=== PATIENT | female | born 1970 | race African-American/Black ===

== ENCOUNTER 2018-12-27 03:01 | Emergency (ER) | payer BC ==
[~2018-12-27] VITALS: Ht 149.9 cm; Wt 113.4 kg
[2018-12-27] MEDS ORDERED: PRILOSEC 20 MG20 MG PO (03:26)
[2018-12-27 03:48] LABS: ABSOLUTE NEUTROPHILS 2.5 thou/uL (1.4-8.2); BASOPHILS 0.8 % (0.0-2.0); EOSINOPHILS 2.4 % (0.0-3.0); HEMATOCRIT 38.9 % (37.0-47.0); HEMOGLOBIN 12.7 gm/dL (12.0-15.0); LYMPHOCYTES 37.5 % (24.0-44.0); MCHC 32.6 g/dL (28.0-37.0); MCV 82.8 fL (80.0-100.0); MONOCYTES 9.8 % (1.0-8.0); PLATELET COUNT 327 thou/uL (150-400); POLYS 49.5 % (36.0-66.0); RBC 4.69 mil/uL (4.20-5.00); RDW 13.8 % (10.5-14.5)
[2018-12-27 03:54] LABS: CALCIUM 8.9 mg/dL (8.5-10.1); CREATININE 0.9 mg/dL (0.6-1.0); POTASSIUM 3.8 mmol/L (3.5-5.1)
[2018-12-27 04:00] LABS: ALBUMIN 3.4 g/dL (3.4-5.0); TOTAL BILIRUBIN 1.6 mg/dL (<0.1-1.0); TOTAL PROTEIN 7.4 g/dL (6.4-8.2)
[2018-12-27 04:16] LABS: URINE BILIRUBIN NEGATIVE (Negative); URINE BLOOD NEGATIVE (Negative); URINE CLARITY CLEAR; URINE COLOR YELLOW; URINE GLUCOSE-RANDOM* NEGATIVE (Negative); URINE KETONES NEGATIVE (Negative); URINE LEUKOCYTES-REFLEX NEGATIVE (Negative); URINE NITRITE-REFLEX NEGATIVE (Negative); URINE PROTEIN (DIPSTICK) NEGATIVE (Negative)
[2018-12-27 06:57] VITALS: BP 146/82
== END 2018-12-27 06:58 | disposition home or self-care (01) ==
LOC: ER 03:01
PROVIDERS: Emergency Medicine
DX: R10.12 Left upper quadrant pain (principal); R74.0 Nonspecific elevation of levels of transaminase and lactic acid dehydrogenase [LDH]; R07.89 Other chest pain; Z90.710 Acquired absence of both cervix and uterus

== ENCOUNTER 2019-02-26 08:50 | Inpatient (IN) | payer BC ==
[~2019-02-26] VITALS: Ht 149.9 cm; Wt 113.4 kg
[~2019-02-26 08:50] MED LIST: PRILOSEC 20 MG20 MG PO
[2019-02-26 08:51] VITALS: BP 127/69
[2019-02-26 09:09] LABS: URINE BILIRUBIN 2+ (Negative); URINE BLOOD 1+ (Negative); URINE CLARITY CLEAR; URINE GLUCOSE-RANDOM* NEGATIVE (Negative); URINE KETONES 2+ (Negative); URINE LEUKOCYTES-REFLEX NEGATIVE (Negative); URINE NITRITE-REFLEX NEGATIVE (Negative); URINE PROTEIN (DIPSTICK) 1+ (Negative); URINE SPECIFIC GRAVITY 1.025 (1.005-1.035); URINE UROBILINOGEN 0.2 E.U./dl (0.2-1.0)
[2019-02-26 09:12] LABS: URINE COLOR DK YELLOW
[2019-02-26 09:13] LABS: ICTOTEST (BILI CONFIRMATORY) Positive (Negative)
[2019-02-26 09:15] LABS: ABSOLUTE NEUTROPHILS 8.4 thou/uL (1.4-8.2); BASOPHILS 0.7 % (0.0-2.0); EOSINOPHILS 0.3 % (0.0-3.0); HEMATOCRIT 38.8 % (37.0-47.0); HEMOGLOBIN 12.8 gm/dL (12.0-15.0); LYMPHOCYTES 19.5 % (24.0-44.0); MCH 27.2 pg (26.0-34.0); MCHC 32.9 g/dL (28.0-37.0); MCV 82.7 fL (80.0-100.0); MONOCYTES 9.4 % (1.0-8.0); PLATELET COUNT 342 thou/uL (150-400); POLYS 70.1 % (36.0-66.0); RBC 4.69 mil/uL (4.20-5.00); RDW 14.5 % (10.5-14.5)
[2019-02-26] MEDS ORDERED: LIPITOR 20 MG T20 M1 PO (09:24)
[2019-02-26] MEDS ORDERED: HYDROCHLOROTHIA25 M2 PO (09:25)
[2019-02-26 09:26] LABS: ANION GAP 10 mmol/L (7-16); BUN 14 mg/dL (7-18); CALCIUM 9.8 mg/dL (8.5-10.1); CHLORIDE 99 mmol/L (98-107); CO2 28 mmol/L (21-32); GLUCOSE 113 mg/dL (74-106); POTASSIUM 3.7 mmol/L (3.5-5.1); SODIUM 137 mmol/L (136-145)
[2019-02-26 09:34] LABS: ALBUMIN 3.3 g/dL (3.4-5.0); LIPASE 1579 U/L (73-393); SGOT 322 U/L (15-37); SGPT 279 U/L (30-65); TOTAL BILIRUBIN 1.9 mg/dL (<0.1-1.0); TOTAL PROTEIN 8.4 g/dL (6.4-8.2); TROPONIN-I <0.06 ng/mL (<0.06)
[2019-02-26 09:53] LABS: BACTERIA-REFLEX 1-9 Few /HPF (None Seen); CASTS None Seen /LPF (None Seen); CRYSTALS None Seen /LPF (None Seen); MUCUS >6 Heavy strn/LPF (None Seen); SQUAMOUS >10 Many /LPF (0-3); URINE RBC 0-2 Rare /HPF (0-2); URINE WBC-REFLEX 0-5 Rare /HPF (0-5)
[2019-02-26 11:57] VITALS: BP 122/61
[2019-02-26 12:05] VITALS: BP 122/61
[2019-02-26 13:30] VITALS: BP 118/63
--- NOTE | 2019-02-26 16:06 | EKG ---
[address] [address] ELECTROCARDIOGRAM REPORT Name: CHARITO MALONEY Room #: 456-P ADM IN M.R.#: [id number] ������������������ Admission: 02/26/19 ������������������ Attend Phys: Eduardo Duarte MD Discharge: ������������������ Date of : 68 Report #: [id number] ����������������������������������������������������������������� [id number] THIS REPORT FOR: //name// [facility] ED Test Date: 2019-02-26 Test Time: 09:17:18 Pat Name: CHARITO MALONEY Department: Room: [facility] Gender: F Display Manager: MAURILIO : 1970 Requested By: Victor M Menjivar Order Number: [id number] MD: Angelo Mast Measurements Intervals [place] Rate: 97 P: 20 MS: 172 QRS: 44 QRSD: 89 T: 36 QT: 363 QTc: 461 Interpretive Statements Sinus rhythm Consider left atrial enlargement No previous ECG available for comparison Electronically Signed On 02-26-2019 16:05:55 CDT by Angelo Mast [email or web address] ��������������������������������������������� <ELECTRONICALLY SIGNED> ���������������������������������������� By: Angelo Mast MD ��������������������������������������������� 02/26/19 1605 0917 6 Angelo Mast MD /LACHO
--- NOTE | 2019-02-26 16:50 | NUR ---
Admitted in the floor with abdominal pain. A+Ox4. Vital signs taken. Pt on NPO- informed and aware, mouth swabs ordered. Pt with consult to Dr Yu- pt seen at ED. IVF started, NS at 125cc/hr at R AC. Pt seen by Dr Yu, for ERCP tomorrow PM, may have clear liquids later then NPO at midnight- pt instructed. Pt with referral to Dr Patel, consult called in via answering service. Admission care rendered. Current pain scale of 1/10, advised pt to inform me if with pain, pt with PRN pain meds prescribed.
[2019-02-26 19:45] VITALS: BP 131/69
--- NOTE | 2019-02-27 04:17 | NUR ---
Assumed care at 1845. Pt resting in bed with at bedside. AOX4. VSS. Removed IV on R AC. Completed chart checks. Pt has been NPO since midnight for ERCP scheduled for tomorrow afternoon. Denies pain. Call light within reach. Bed in lowest position. Will continue to monitor.
[2019-02-27 05:22] LABS: ABSOLUTE NEUTROPHILS 3.4 thou/uL (1.4-8.2); BASOPHILS 0.6 % (0.0-2.0); EOSINOPHILS 3.1 % (0.0-3.0); HEMATOCRIT 34.1 % (37.0-47.0); LYMPHOCYTES 31.3 % (24.0-44.0); MCH 27.2 pg (26.0-34.0); MCHC 32.4 g/dL (28.0-37.0); MCV 84.1 fL (80.0-100.0); MONOCYTES 10.8 % (1.0-8.0); PLATELET COUNT 276 thou/uL (150-400); POLYS 54.2 % (36.0-66.0); RBC 4.05 mil/uL (4.20-5.00); RDW 14.7 % (10.5-14.5); WBC 6.2 thou/uL (4.0-11.0)
[2019-02-27 05:32] VITALS: BP 107/59
[2019-02-27 05:40] LABS: ALBUMIN 2.5 g/dL (3.4-5.0); CREATININE 0.8 mg/dL (0.6-1.0); POTASSIUM 3.5 mmol/L (3.5-5.1); TOTAL BILIRUBIN 1.8 mg/dL (<0.1-1.0); TOTAL PROTEIN 6.5 g/dL (6.4-8.2)
[2019-02-27 07:32] VITALS: BP 138/70
--- NOTE | 2019-02-27 09:57 | NUR ---
Chart reviewed and case discussed with the care team. Pt having ERCP today and likely lap beth tomorrow. Pt is a&ox4 and lives indep with her spouse. 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 No cm interventions identified at this time. Will remain available should dc needs arise.
--- NOTE | 2019-02-27 13:42 | NUR ---
PT A&OX4, VSS, DENIES PAIN. PATIENT HAS BEEN RESTING CALMLY IN RECLINER WITH FAMILY AT BEDSIDE. ANTIBIOTICS AND FLUIDS RUNNING ORDERED. PATIENT WILL HAVE ERCP DONE TODAY. WILL CONTINUE TO MONITOR.
[2019-02-27 16:05] VITALS: BP 135/84
[2019-02-27 19:18] VITALS: BP 141/77
--- NOTE | 2019-02-28 03:14 | NUR ---
ASSUMED CARE AROUND 1900. AXOX4. KEPT NPO FOR POSSIBLE LAP BETH IN AM. NO S/S ACUTE DISTRESS NOTED OR REPORTED AT THIS TIME. WILL CONT TO MONITOR FOR ANY CHANGES IN CONDITION.
[2019-02-28 04:03] VITALS: BP 135/76
[2019-02-28 08:01] VITALS: BP 141/73
--- NOTE | 2019-02-28 17:31 | NUR ---
PATIENT WENT TO SURGERY EARLIER AND JUST RETURNED. DRAIN TO RIGHT UPPER QUADRANT IN PLACE AND DRAINING SMALL AMOUT OF BLOOD. SHE IS SLEEPING AT THIS TIME. RESPIRATIONS ARE NON LABORED. OXYGEN GREATER THAN 90% IN ROOM AIR. AND KIDS PRESENT. PULSES ARE GOOD. LUNGS CLEAR. WILL CONT WITH PLAN OF CARE.
[2019-02-28 20:02] VITALS: BP 116/65
[2019-03-01 02:19] VITALS: BP 149/89
--- NOTE | 2019-03-01 03:27 | NUR ---
PAIN CONTROLLED THIS SHIFT. PATIENT AMBULATED IN THE ROOM AND ON THE HALLWAY WITH STEADY GAITS. PATIENT WAS ABLE TO DRINK WATER AND TOLERATED WELL. PATIENT WAS NOT ABLE TO TOLERATING CLEAR LIQUIDS AT THIS SHIFT,ZOFRAN GIVEN PER DR. LENZ. FOUR LAP SITE ARE C/D/I. PATIENT HAS A JIMENEZ DRAIN WITH RED OUTPUT. SCD ON WHILE IN BED. PATIENT IS UP IN THE CHAIR AT THIS TIME BREATHING REGULAR AND UNLABOURED.
[2019-03-01 03:46] VITALS: BP 154/81
[2019-03-01 05:42] LABS: HEMATOCRIT 35.5 % (37.0-47.0); HEMOGLOBIN 11.5 gm/dL (12.0-15.0); MCH 27.6 pg (26.0-34.0); MCHC 32.5 g/dL (28.0-37.0); MCV 85.1 fL (80.0-100.0); RBC 4.17 mil/uL (4.20-5.00); RDW 14.7 % (10.5-14.5); WBC 8.2 thou/uL (4.0-11.0)
[2019-03-01 05:59] LABS: ALBUMIN 2.6 g/dL (3.4-5.0); CALCIUM 8.5 mg/dL (8.5-10.1); CREATININE 0.8 mg/dL (0.6-1.0); POTASSIUM 4.1 mmol/L (3.5-5.1); TOTAL BILIRUBIN 0.4 mg/dL (<0.1-1.0); TOTAL PROTEIN 7.1 g/dL (6.4-8.2)
[2019-03-01 07:54] VITALS: BP 143/69
--- NOTE | 2019-03-01 09:11 | NUR ---
Pt seen for BMI > 40. At 250# per admit wt, BMI = 50.5 kg/m2. She is s/p lap cholecystectomy on 02/28. Per nursing note, tolerated water, did not tolerate clear liquids. Received Zofran this AM. Possibly to try solid food later today. Per provider note, goal to consume low fat diet once tolerating clears. Deferred wt loss education this date d/t POD #1 from surgery and focused on nutrition for healing, protein foods, and educated on low fat diet. See RD education note for further details. Pt remains low nutrition risk.
--- NOTE | 2019-03-01 13:44 | NUR ---
CARE TEAM INDICATED THAT PT WILL BE MEDICALLY STABLE TO DC HOME TOMORROW. DR. STEPHENS INDICATED THAT DRAIN WILL BE PULLED PRIOR TO DISCHARGE. IT IS ANTIPATED THAT PT WILL HAVE NO NEEDS UPON DC. CM ABLE TO ASSIST SHOULD ANY NEEDS ARISE.
[2019-03-01 14:25] VITALS: BP 146/64
--- NOTE | 2019-03-01 15:58 | NUR ---
Assumed pt care this am, she is steady on her gait and is able to ambulate from the bed to the chair. Pt did complain on n and V, medication given. Pt also complained that she feels there is a "piece of meat hanging bedind my throat", GI was consulted, lidocaine swish and swallow given for the irritation. VS hacve been stable, JIMENEZ drain intact and draining serosanguinous fluid. Seen by surgery, diet to be advanced to a low fat dient once clear liquids are tolerated. Pt is to go home with the JIMENEZ drain then to follow up with surgery a week after. POC being followed will monitor for other signs of distress.
--- NOTE | 2019-03-01 17:04 | P ---
[facility] [place] [address] [place] [address] PROCEDURE REPORT Name: CHARITO MALONEY Room #: 456-P ADM IN M.R.#: [id number] Admission: 02/26/19 ������������������ Attend Phys: Eduardo Duarte MD Discharge: ������������������ Date of : 68 Report #: [id number] THIS REPORT FOR: //name// CC: Eduardo Duran MD DATE OF SERVICE: 02/27/2019 BRIEF HISTORY: The patient is a 48-year-old woman who presented to [facility] with second episode of biliary colic. Once again, she has significantly elevated transaminases. She has evidence of cholelithiasis and also evidence of dilated common bile duct consistent with choledocholithiasis. Bilirubin is also elevated. In addition, she did have elevation of her lipase. PREOPERATIVE DIAGNOSIS: Choledocholithiasis. POSTOPERATIVE DIAGNOSES: Choledocholithiasis, sludge/debris in distal common bile duct. ESTIMATED BLOOD LOSS: None. PROCEDURE: EGD with insertion of guidewire, ERCP with endoscopic sphincterotomy and extraction of sludge material from the common bile duct. FINDINGS: Prior to intubation and general anesthesia, the procedure of ERCP was discussed with the patient as well as potential risks and its complications. She indicates she understands and desire that we proceed. DESCRIPTION OF PROCEDURE: The patient was taken to the operating room and induced general anesthesia, intubated, and placed in the prone position. Subsequently, attempts were made to pass the ERCP scope. The patient was morbidly obese and has a very thick neck and it was difficult to visualize a safe passageway into the upper esophagus. The patient position was changed, but we still had difficulty. Subsequently, we did an upper endoscopy with passage of Olympus video endoscope into the cervical esophagus. It was done with a little difficulty, but we were able to intubate the esophagus. Examination of esophagus through its entire length revealed normal esophageal mucosa down the squamocolumnar junction. Squamocolumnar junction was unremarkable. Scope was advanced in the stomach. The patient has had a previous gastric sleeve surgery. Changes consistent with previous gastric sleeve were identified. The mucosa was normal. The pylorus was normal. Duodenal bulb was normal. The duodenal papilla was identified. There was yellow bile in the duodenum. We then inserted a guidewire through the biopsy channel of the scope and removed the scope with the wire. [address] [address] PROCEDURE REPORT Name: CHARITO MALONEY Room #: 456-P [facility] IN .R.#: [id number] Admission: 02/26/19 ������������������ Attend Phys: Eduardo Duarte MD Discharge: ������������������ Date of : 68 Report #: [id number] The guidewire was left in place and we then passed the Olympus video duodenoscope with visualization of the guidewire and passed relatively easily into the esophagus. The scope was advanced to the esophagus, into the stomach and came across the pylorus. The papilla was identified. The angle was off a little bit likely because of her previous gastric sleeve surgery, but papilla was clearly seen. Yellow bile was seen flowing from it. The papilla appeared normal. Initial cannulation and injection of contrast revealed filling the pancreatic duct. As soon as this was realized the catheter was withdrawn. Limited views of the pancreatic duct were normal. We then made a second attempted cannulation. On this attempt, we passed the sphincterotome into the common bile duct and advanced it proximally. The guidewire was inserted deeply into the intrahepatics. Injection of contrast revealed several small filling defects distally. A large stone was not seen. A sphincterotomy was then completed. There was no bleeding. There was a gush of fluid and tiny debris. We then inserted a balloon catheter and pulled the balloon catheter through the bile duct on multiple occasions and no additional debris, stones or sludge was obtained. The bile duct was draining very well. It was felt the patient had sludge, which had passed with the sphincterotomy. The scope was withdrawn. The patient tolerated the procedure well. DISPOSITION: The patient with biliary colic with dilated ducts, elevated bilirubin and transaminases and evidence of dilated bile duct, status post endoscopic sphincterotomy. We will advance the patient's diet to clear liquids later this afternoon. I did have discussed with the patient and her prior to the ERCP. They were questioning the need for cholecystectomy. She does have gallstones. She does have thickened gallbladder burleson. I have recommended a cholecystectomy. However, they were uncertain whether or not they wanted to proceed with surgery. I explained to them that I am not a surgeon and that they will have to see a surgeon for discussion about cholecystectomy. ��������������������������������������������� <ELECTRONICALLY SIGNED> ���������������������������������������� By: Regis Yu MD ��������������������������������������������� 03/01/19 1704 1404 20 Regis Yu MD /nt
[2019-03-01 20:48] VITALS: BP 154/79
[2019-03-02 03:18] VITALS: BP 151/89
--- NOTE | 2019-03-02 03:29 | NUR ---
ASSESSMENT: PT REMAIN ALERT AND ORIENT TIMES FOUR. SLOW TO RESPOND AT TIMES. UP AD RSOINA TO THE BR WITH STEADY GAIT. DENIES PAIN, SOB AND NAUSEA. JIMENEZ DRAIN NOTED WITH YELLOWISH OUTPUT. IVF DC'D PER PYXIS, PT TOLERATING PO INTAKE OF CLEAR LIQS THEN TO SOFT DIET. S/O WAS AT THE BEDSIDE AT THE BEGINNING OF THE SHIFT. PT STATE THAT SHE IS SWALLOWING BETTER AND DID NOT WANT LIDOCAINE VISCOUS AT THE TIME. SLOW PROGRESS TOWARDS DC GOALS. WILL CONTINUE TO MONITOR.
[2019-03-02 06:24] LABS: ALBUMIN 2.6 g/dL (3.4-5.0); DIRECT BILIRUBIN 0.1 mg/dL (<0.1-0.3); TOTAL BILIRUBIN 0.4 mg/dL (<0.1-1.0); TOTAL PROTEIN 6.6 g/dL (6.4-8.2)
[2019-03-02 07:15] VITALS: BP 152/84
--- NOTE | 2019-03-02 09:55 | NUR ---
Received awake on bed. Due medications given as prescribed. A+Ox4. On room air. No episodes of nausea and vomiting noted. Pt with post op surgical wounds- C/D/I, no signs of infection noted. With JIMENEZ drain in situ- yellow colored drain noted- sutured in. With SL at L FA- patent and infusing well. No complaints of pain. Pt tolerated Low fat regular diet- no complaints of nausea, vomiting, abdominal pain after eating. With at bedside. Pt seen by Dr Patel this AM, pt ok for discharge on surgical standpoint, follow up after 2 weeks. A/W hospitalist rounds for dicharge orders. Vital signs stable. Pt's JIMENEZ drain pulled out, no bleeding noted; gauze and transparent dressing applied.
[2019-03-02 10:54] VITALS: BP 152/84
--- NOTE | 2019-03-04 14:06 | PATH ---
[facility] [address] [place] [address] PATHOLOGY RPT PROCEDURE Name: HCARITO BANKS Room #: 456-P [facility] IN M.R.#: [id number] ������������������ Admission: 02/26/19 ������������������ Date of : 68 Discharge: 03/02/19 Report #: [id number] Path Case #: [id number] [facility] Accession Number: [id number] . 01 Material submitted: . gallbladder - GALLBLADDER . 01 Clinical history: . Common bile duct stone . 02 Diagnosis: Gallbladder "gallbladder", cholecystectomy: - Acute cholecystitis with mucosal necrosis, hemorrhage and edema and with cholesterolosis and cholelithiasis. (AVE/db; 03/04/2019) LBQ/03/04/2019 . 02 Electronically signed: . Christopher Ibarra MD, Pathologist NPI- [id number] . 01 Gross description: . Received in formalin labeled "Charito Banks, gallbladder," is a previously opened gallbladder measuring 7.2 x 4.4 x 2.1 cm in greatest dimensions. The serosal surface is smooth to shaggy and light ritter to dusky gamez-ritter and focally hemorrhagic in appearance. The mucosal surface is granular and ritter-brown in appearance, partially covered in friable, yellow-ritter material toward the fundal aspect. The mucosa averages 0.1 cm in thickness, and the gallbladder wall measures up to 0.4 cm in thickness. No polyps or nodules are noted grossly. Numerous calculi are present within the specimen and specimen container that are smooth and pale yellow in appearance, ranging from 0.2 to 0.4 cm in maximum dimension. Solar Panel Installation Supervisor sections of the infundibulum, body and fundus are submitted in cassette A1. ([facility]; 03/01/2019) XDC/XDC . 02 Pathologist provided ICD-10: K80.10, K82.4 . 02 CPT . 107112 Specimen Comment: A courtesy copy of this report has been sent to Specimen Comment: [phone], , . Specimen Comment: Report sent to DR STEPHENS,DR MONTIEL / DR OCAMPO Performed at: [address] [address] PATHOLOGY RPT PROCEDURE Name: CHARITO BANKS Room #: 456-P DIS IN M.R.#: [id number] ������������������ Admission: 02/26/19 ������������������ Date of : 68 Discharge: 03/02/19 Report #: [id number] Path Case #: [id number] [address] [facility] [address], [place] [id number] MD Rui Hess MD Phone: [phone] Performed at: [address] [id number] MD Puja Lay MD Phone: [phone]
== END 2019-03-02 11:16 | disposition home or self-care (01) | DRG 417 ==
LOC: ER 08:50 → EROBS 11:38 → 4W 11:38
PROVIDERS: Emergency Medicine; Nurse Practitioner; Surgery; ADMIT Internal Medicine
PROC: 0F798ZZ Dilation of Common Bile Duct, Via Natural or Artificial Opening Endoscopic (ICD-10-PCS; principal; 2019-02-27)
PROC: 0FT44ZZ Resection of Gallbladder, Percutaneous Endoscopic Approach (ICD-10-PCS; 2019-02-28)
DX: K80.62 Calculus of gallbladder and bile duct with acute cholecystitis without obstruction (principal); K85.10 Biliary acute pancreatitis without necrosis or infection; E43 Unspecified severe protein-calorie malnutrition; Z68.43 Body mass index [BMI] 50.0-59.9, adult; K59.00 Constipation, unspecified; E66.01 Morbid (severe) obesity due to excess calories; E78.5 Hyperlipidemia, unspecified; I10 Essential (primary) hypertension; R74.0 Nonspecific elevation of levels of transaminase and lactic acid dehydrogenase [LDH]; Z90.710 Acquired absence of both cervix and uterus
CPT/HCPCS: 10040; 50010; 50101; 50249; 50411; 50555; 50558; 50900; 50962; 51489; 51975; 52265; 52266; 52287; 53307; 53310; 54022; 54118; 55245; 55317; 56462; 56525; 56526; 62110; 62900; 70005

== ENCOUNTER 2020-06-19 19:18 | Emergency (ER) | payer BC ==
[~2020-06-19] VITALS: Ht 149.9 cm; Wt 104.8 kg
--- NOTE | ~2020-06-19 | EKG ---
[facility] [place] [address] [place] [address] ELECTROCARDIOGRAM REPORT Name: CHARITO MALONEY Room #: [facility] M.R.#: [id number] Admission: Attend Phys: Discharge: Date of : 68 Report #: [id number] THIS REPORT FOR: cc: Asia Duran MD, Kavitha MD Epiphany, Epiphany MD ~ THIS REPORT FOR: //name// [facility] ED Test Date: 2020-06-19 Test Time: 19:33:54 Pat Name: CHARITO MALONEY Department: Room: Gender: F Pharmacist Critical Care: sascha zarco : 1970 Requested By: Armando Mustafa Order Number: [id number] MD: Measurements Intervals [place] Rate: 123 P: 40 ND: 144 QRS: 7 QRSD: 90 T: -33 QT: 321 QTc: 460 Interpretive Statements Sinus tachycardia Left ventricular hypertrophy Borderline T abnormalities, inferior leads Compared to ECG 02/26/2019 09:17:18 Left ventricular hypertrophy now present T-wave abnormality now present Sinus rhythm no longer present [email or web address] By: 1933 32 Epiphany EpiphanyMD /EPI
[~2020-06-19 19:18] MED LIST changes: +HYDROCHLOROTHIA25 M2 PO; +LIPITOR 20 MG T20 M1 PO
[2020-06-19 19:52] LABS: HEMATOCRIT 34.8 % (37.0-47.0); MCH 26.5 pg (26.0-34.0); MCHC 31.5 g/dL (28.0-37.0); MCV 83.9 fL (80.0-100.0); PLATELET COUNT 318 thou/uL (150-400); RBC 4.15 mil/uL (4.20-5.00); RDW 15.7 % (10.5-14.5); WBC 11.7 thou/uL (4.0-11.0)
[2020-06-19 20:06] LABS: ANION GAP 11 mmol/L (7-16); BUN 13 mg/dL (7-18); CALCIUM 8.6 mg/dL (8.5-10.1); CHLORIDE 106 mmol/L (98-107); CO2 26 mmol/L (21-32); GLUCOSE 148 mg/dL (74-106); POTASSIUM 3.1 mmol/L (3.5-5.1); SODIUM 143 mmol/L (136-145)
[2020-06-19 20:13] LABS: ABSOLUTE NEUTROPHILS 2.3 thou/uL (1.4-8.2); ATYPICAL LYMPHS 3 %; PLATELET ESTIMATE NORMAL
[2020-06-19 20:14] LABS: TROPONIN-I <0.06 ng/mL (<0.06)
[2020-06-19 21:19] VITALS: BP 113/67
== END 2020-06-19 21:30 | disposition home or self-care (01) ==
LOC: ER 19:18
PROVIDERS: Nurse Practitioner
DX: T78.40XA Allergy, unspecified, initial encounter (principal); I10 Essential (primary) hypertension; E78.5 Hyperlipidemia, unspecified; Z90.710 Acquired absence of both cervix and uterus; Z79.899 Other long term (current) drug therapy; Y92.89 Other specified places as the place of occurrence of the external cause

== ENCOUNTER 2020-12-07 09:01 | Emergency (ER) | payer BC ==
[~2020-12-07] VITALS: Ht 149.9 cm; Wt 96.6 kg
[2020-12-07] MEDS ORDERED: PRILOSEC OTC20 MG PO (09:28)
[2020-12-07 09:47] LABS: HEMATOCRIT 38.2 % (37.0-47.0); HEMOGLOBIN 12.8 gm/dL (12.0-15.0); MCHC 33.5 g/dL (28.0-37.0); MCV 83.8 fL (80.0-100.0); RBC 4.56 mil/uL (4.20-5.00); WBC 5.9 thou/uL (4.0-11.0)
[2020-12-07 10:10] LABS: ANION GAP 6 mmol/L (7-16); BUN 15 mg/dL (7-18); CALCIUM 9.2 mg/dL (8.5-10.1); CHLORIDE 107 mmol/L (98-107); CO2 28 mmol/L (21-32); CREATININE 0.8 mg/dL (0.6-1.0); GLUCOSE 101 mg/dL (74-106); POTASSIUM 3.8 mmol/L (3.5-5.1); SODIUM 141 mmol/L (136-145)
[2020-12-07 10:20] LABS: ALBUMIN 3.4 g/dL (3.4-5.0); SGOT 21 U/L (15-37); SGPT 32 U/L (14-59); TOTAL BILIRUBIN 0.4 mg/dL (0.2-1.0); TOTAL PROTEIN 7.4 g/dL (6.4-8.2); TROPONIN-I <0.06 ng/mL (<0.06)
[2020-12-07 10:50] LABS: URINE BILIRUBIN NEGATIVE (Negative); URINE BLOOD NEGATIVE (Negative); URINE CLARITY CLEAR; URINE COLOR YELLOW; URINE GLUCOSE-RANDOM* NEGATIVE (Negative); URINE KETONES NEGATIVE (Negative); URINE LEUKOCYTES-REFLEX NEGATIVE (Negative); URINE NITRITE-REFLEX NEGATIVE (Negative); URINE PROTEIN (DIPSTICK) NEGATIVE (Negative); URINE UROBILINOGEN 0.2 E.U./dl (0.2-1.0)
[2020-12-07 11:47] VITALS: BP 152/86
--- NOTE | 2020-12-07 11:47 | EKG ---
[place] [address] [facility] [place] [address] ELECTROCARDIOGRAM REPORT Name: CHARITO MALONEY Room #: YADI Pritchard#: [id number] Admission: 12/07/20 Attend Phys: Discharge: Date of : 68 Report #: [id number] [facility] [place] ED Test Date: 2020-12-07 Test Time: 09:34:38 Pat Name: CHARITO MALONEY Department: Room: Gender: F Pre Billing Clinician: Ciarra SCHRADER : 1970 Requested By: Luis Coronel Order Number: [id number] MD: Jeremi Castro Measurements Intervals [place] Rate: 69 P: 48 [place]: 176 QRS: 10 QRSD: 97 T: 34 QT: 403 QTc: 432 Interpretive Statements Sinus rhythm Probable left ventricular hypertrophy Compared to ECG 06/19/2020 19:33:54 T-wave abnormality no longer present Electronically Signed On 12-07-2020 11:47:42 CDT by Jeremi Castro [email or web address] <ELECTRONICALLY SIGNED> By: Jeremi Castro MD, [facility] 12/07/20 1147 0934 3 Jeremi Castro MD, FACC /EPI
== END 2020-12-07 11:47 | disposition home or self-care (01) ==
LOC: ER 09:01
PROVIDERS: Emergency Medicine
DX: I10 Essential (primary) hypertension (principal); R42 Dizziness and giddiness; E78.5 Hyperlipidemia, unspecified; Z90.710 Acquired absence of both cervix and uterus; Z79.899 Other long term (current) drug therapy

== ENCOUNTER 2021-01-25 21:37 | Observation (INO) | payer BC ==
[~2021-01-25] VITALS: Ht 149.9 cm; Wt 102.8 kg
[~2021-01-25 21:37] MED LIST changes: +PRILOSEC OTC20 MG PO
[2021-01-25 21:46] VITALS: BP 140/90
[2021-01-25 22:36] LABS: WBC 9.3 thou/uL (4.0-11.0)
[2021-01-25 22:38] LABS: ABSOLUTE NEUTROPHILS 3.8 thou/uL (1.4-8.2); BASOPHILS 1.1 % (0.0-2.0); EOSINOPHILS 1.9 % (0.0-3.0); HEMATOCRIT 37.9 % (37.0-47.0); HEMOGLOBIN 12.4 gm/dL (12.0-15.0); LYMPHOCYTES 48.1 % (24.0-44.0); MCH 27.5 pg (26.0-34.0); MCHC 32.8 g/dL (28.0-37.0); MCV 84.1 fL (80.0-100.0); MONOCYTES 7.8 % (1.0-8.0); PLATELET COUNT 331 thou/uL (150-400); POLYS 41.1 % (36.0-66.0); RBC 4.51 mil/uL (4.20-5.00)
[2021-01-25 22:44] LABS: ANION GAP 11 mmol/L (7-16); BUN 17 mg/dL (7-18); CALCIUM 9.1 mg/dL (8.5-10.1); CHLORIDE 102 mmol/L (98-107); CO2 30 mmol/L (21-32); CREATININE 0.9 mg/dL (0.6-1.0); GLUCOSE 110 mg/dL (74-106); POTASSIUM 3.3 mmol/L (3.5-5.1); SODIUM 143 mmol/L (136-145)
[2021-01-25 22:49] LABS: ALBUMIN 3.6 g/dL (3.4-5.0); DIRECT BILIRUBIN 0.2 mg/dL (<0.1-0.2); TOTAL BILIRUBIN 0.5 mg/dL (0.2-1.0); TOTAL PROTEIN 7.1 g/dL (6.4-8.2)
[2021-01-25 22:53] LABS: TROPONIN-I <0.06 ng/mL (<0.06)
[2021-01-26 00:23] VITALS: BP 178/52
[2021-01-26 01:30] VITALS: BP 131/74
--- NOTE | 2021-01-26 02:29 | NUR ---
Pt admited from ED at 0130 from ED with chest pain. A/OX4, VSS. Denies pain on assessment, only complain of heartburn on admission. Jaye HOLLAND notified.new orders obatained. Pt is up ad robert,denies using any devices at home. Pt is on telemetry NSR. Resting quietly at this time w/o any distress noted.
[2021-01-26 04:26] VITALS: BP 109/62
[2021-01-26 05:01] LABS: CHOLESTEROL 176 mg/dL (<200); HDL CHOLESTEROL 84 mg/dL (>40); LDL CHOLESTEROL 80 mg/dL (<100); SERUM ASSESSMENT Clear; TC:HDL 2.1 Ratio (Not establshd); TRIGLYCERIDE 63 mg/dL (<150); TROPONIN-I <0.06 ng/mL (<0.06); VLDL 13 mg/dL (<40)
--- NOTE | 2021-01-26 07:19 | EKG ---
[place] [address] [facility] [place] [address] ELECTROCARDIOGRAM REPORT Name: CHARITO MALONEY Room #: 459-P [facility].#: [id number] Admission: 01/25/21 Attend Phys: Diallo Delong MD Discharge: Date of : 68 Report #: [id number] [facility] ED Test Date: 2021-01-25 Test Time: 21:41:20 Pat Name: CHARITO MALONEY Department: Room: [facility] Gender: F Line Maintenance Technician: ONEAL : 1970 Requested By: Armando Mustafa Order Number: [id number] MD: Jeremi Castro Measurements Intervals [place] Rate: 94 P: 60 SC: 157 QRS: 12 QRSD: 94 T: 27 QT: 363 QTc: 454 Interpretive Statements Sinus rhythm LVH by voltage Compared to ECG 12/07/2020 09:34:38 No significant changes Electronically Signed On 01-26-2021 7:18:55 CDT by Jeremi Castro [email or web address] <ELECTRONICALLY SIGNED> By: Jeremi Castro MD, [facility] 01/26/21717 40 2141 Jeremi Castro MD, FACC /EPI
--- NOTE | 2021-01-26 10:59 | NUR ---
RD CONSULTED R/T WEIGHT MANAGEMENT EDUCATION REQUESTED BY THE PT. NOTED PT WITH HX OF GASTRIC SLEEVE AND SUBSEQUENT NUTRITION EDUCATION 2016. PT ADMITS SHE HAS "GOTTEN OFF TRACK," AND WOULD LIKE SOME WRITTEN EDUCATION ON WEIGHT LOSS STRATEGIES, MEAL PLANNING, AND "GOOD CARBS VS BAD CARBS." PT REPORTS HOME WEIGHT OF 216#, A TOTAL OF 22% WEIGHT LOSS SINCE HER SURGERY. MEDS REVIEWED. LABS: K 3.3, GLU 110, TSH WNL. CURRENTLY ON HEART HEALTHY DIET WITH NO C/O. PT REPORTS F/U WITH DOOR CORE ASSEMBLER FOR OUTPATIENT STRESS TEST AFTER D/C. LOW NUTRITION RISK.
--- NOTE | 2021-01-26 11:33 | NUR ---
PT ADMITTED RELATED TO CHEST PAIN/PRESSURE. CMREVIEWED CHART AND SPOKE WITH CARE TEAM. CM MET WITH PT AT BEDSIDE THIS DAY. PT APPEARED TO BE A&O X4. CM ROLE INTRODUCED. PT INDICATED SHE LIVES IN A HOUSE WITH HER SPOUSE WITH 4 STEPS TO ENTER AND 4 STEPS TO BEDROOM. 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 PT INDICATED NO HH OR OP THERAPY HX. PT INDICATED SHE PLANS TO RETURN HOME ONCE MEDICALLY STABLE. PT TO HAVE STRESS TEST THIS DAY AND DEPEENDING ON RESULTS MAY BE MEDICALLY STABLE TO DC. PT IS AWARE AND AGREEABLE. PT'S SPOUSE TO PROVIDE TRANSPORT HOME. NO DC NEEDS ANTICPATED. CASE CLOSED.
[2021-01-26 13:25] VITALS: BP 109/62
--- NOTE | 2021-01-26 14:06 | NUR ---
Assumed pt care this am, VS stable. Diet and medications are tolerated well. Went down for a stress test in the am. POC followed with no signs or verbalizations of distress noted. DC instuctions given, IV removed. Pt is now dc, picked up by family.
[2021-01-27 00:06] LABS: GLYCOHEMOGLOBIN (HGB A1C) 5.9 % (4.8-5.6)
--- NOTE | 2021-01-28 15:28 | EXE ---
[facility] [place] [address] [place] [address] STRESS ECHOCARDIOGRAM Name: CHARITO MALONEY Room #: 459-P DEBO Valenzuela MKiran#: [id number] Admission: 01/25/21 Attend Phys: Diallo Delong MD Discharge: 01/26/21 Date of : 68 Report #: [id number] THIS REPORT FOR: cc: Asia Duran MD, Kavitha MD Mancuso, Gerald M. MD [facility] ~ APPROVED REPORT Study performed: 01/26/2021 10:17:08 Exam: Stress Echocardiogram Indication: Chest pain Patient Location: In-Patient Stress Nurse: KAMARI Black Room #: 459 Status: routine Ht: 4 ft 11 in HR: 72 bpm BP: 109/62 mmHg Medical History Allergies: No known drug allergies Cardiac Risk Factors: HTN, Hyperlipidemia, obesity Procedure The patient underwent an Exercise Stress Test using the Nicho Protocol. Blood pressure, heart rate, and EKG were monitored. An Echocardiogram was performed by small engine technician in four stages in quad fashion. At peak stress, four selected images were obtained and placed side by side with resting images for comparison. Stress Test Details Stress Test: Exercise stress testing was performed using a Nicho protocol. HR Resting HR: 72 bpm Max Heart Rate (APMHR): 169 bpm Max HR Achieved: 171 bpm Target HR (85% APMHR): 143 bpm % of APMHR: 101 Recovery HR: 117 bpm HR response to stress: Normal HR response to stress BP Resting BP: 109/62 mmHg Max BP: 150/80 mmHg [facility] [address] [place] [address] STRESS ECHOCARDIOGRAM Name: CHARITO MALONEY Room #: 459-P [facility] IN M.R.#: [id number] Admission: 01/25/21 Attend Phys: Emiliano Andrade Discharge: 01/26/21 Date of : 68 Report #: [id number] Recovery BP: 138/70 mmHg ECG Clinical Reason for Termination: Completed protocol, Maximal effort Exercise duration: 9 min sec Highest Stage Achieved: Stage 3: 3.4 mph at 14% grade. Exercise capacity: 10.40 METs Pre-Stress Echo The resting Echocardiogram showed normal left ventricular contractility with an estimated Ejection Fraction of about 55-60%. The resting echocardiogram demonstrated normal wall motion in all wall segments. Post-Stress Echo The stress Echocardiogram showed normal left ventricular contractility with an estimated Ejection Fraction of about 65-70%. Compared to rest, there were no stress-induced wall motion abnormalities. Conclusion Clinical Response: Non-ischemic Exercise Capacity: Average Stress ECG Response: Non-ischemic Stress Echo Images: Non-ischemic Other Information Study Quality: Good <ELECTRONICALLY SIGNED> By: Bimal Molina MD, [facility] 01/28/21 1528 1528 1528 Bimal Molina MD, FACC /INF
== END 2021-01-26 14:16 | disposition home or self-care (01) ==
LOC: ER 21:37 → EROBS 23:48 → 4W 01-26 01:18
PROVIDERS: Emergency Medicine; Nurse Practitioner; Nurse Practitioner Family; ADMIT Hospitalist; ATTEND Hospitalist
DX: R07.89 Other chest pain (principal); I10 Essential (primary) hypertension; E78.5 Hyperlipidemia, unspecified; E66.9 Obesity, unspecified; Z68.42 Body mass index [BMI] 45.0-49.9, adult; Z79.899 Other long term (current) drug therapy